=== PATIENT | male | born 1955 | race Hispanic/Latino ===

== ENCOUNTER 2020-06-05 18:08 | Emergency (ER) | payer OTHER ==
[~2020-06-05 18:08] MED LIST: Iopamidol-370 76% 500 ML 1 ML ONE
--- NOTE | 2020-06-05 19:40 | CT ---
CT Abdomen Pelvis W Con: 06/05/2020 6:30 PM CLINICAL INFORMATION: Left lower quadrant abdominal pain COMPARISON: None. TECHNIQUE: Multiple contiguous axial images were obtained and a CT of the abdomen and pelvis with IV contrast. C oronal and sagittal reformats were performed. FINDINGS: Lower Chest: within normal limits. Abdomen: Liver: within normal limits. Bile Ducts: Normal caliber. Gallbladder: No calcified gallstones. Normal caliber wall. Pancreas: within normal limits. Spleen: within normal limits. Adrenals: within normal limits. Kidneys: Mild left hydronephrosis. 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 Pelvis: Reproductive Organs: No pelvic masses. Ureters: 5 mm proximal left ureteral calcification with mild left hydroureter and surrounding strandi ng changes Bladder: within normal limits. Peritoneum: No ascites or free air, no fluid collection. Bowel: Normal caliber. Mesentery and Retroperitoneum: No enlarged mesenteric or retroperitoneal lymph nodes. Vessels: Normal. Abdominal Wall: within normal limits. Bones: Within normal limits IMPRESSION: 1. Left proximal ureteral calcification with mild left hydronephrosis 2. Right renal artery aneurysm
== END 2020-06-05 21:26 | disposition home or self-care (01) ==
LOC: ERS 18:08
DX: N13.2 Hydronephrosis with renal and ureteral calculous obstruction (principal); E11.9 Type 2 diabetes mellitus without complications; E78.5 Hyperlipidemia, unspecified; I10 Essential (primary) hypertension; Z87.891 Personal history of nicotine dependence; Z79.899 Other long term (current) drug therapy
CPT/HCPCS: 74177; Q9967

== ENCOUNTER 2020-08-28 07:13 | Outpatient (CLI) | payer OTHER ==
[2020-08-28 18:25] LABS: Bilirubin Neg (Negative); Blood, Urine Negative (Negative); Clarity Clear (Clear); Glucose, Urine (Dipstick) Normal (Negative); Ketone, Urine Negative (Negative); Leukocyte Negative (Negative); Nitrite Negative (Negative); Protein, Urine (Dipstick) Negative (Neg-Trace); Specific Gravity, Urine 1.015 (1.002-1.036); Urobilinogen Normal mg/dL (Less than 2)
[2020-08-28 18:39] LABS: Hemoglobin 14.4 g/dL (14.0-18.0); Mean Corpuscular HGB CONC 33.6 G/DL (32.0-36.0); Mean Corpuscular Hemoglobin 32.1 PG (27.0-33.0); Mean Corpuscular Volume 95.8 fl (80.0-100.0); Mean Platelet Volume 9.4 fl (7.4-10.4); Platelet Count 268 10x3/uL (130-400); RBC Distribution Width 12.9 % (11.5-14.5); Red Blood Cell (RBC) Count 4.48 10x6/uL (4.40-5.80); White Blood Cell (WBC) Count 7.9 10x3/uL (4.5-11.0)
[2020-08-28 18:46] LABS: Bacteria/HPF Rare-Few HPF (None Seen); RBC/HPF 0-3 HPF (0-3); Squamous Epithelial None Seen HPF (0-3); WBC/HPF 0-3 HPF (0-3)
[2020-08-28 18:47] LABS: Anion Gap 13 mmol/L (10-20); BUN (Urea Nitrogen) 17 mg/dL (8.4-25.7); Calc. Creatinine Clearance 0 mL/min (70-130); Calcium 9.1 mg/dL (7.8-10.44); Carbon Dioxide 24 mmol/L (23-31); Chloride 102 mmol/L (98-107); Estimated GFR-MDRD 90; Glucose 176 mg/dL (80-115); Potassium 4.2 mmol/L (3.5-5.1); Sodium 135 mmol/L (136-145)
[2020-08-28 18:50] LABS: PTT 27.5 sec (22.0-33.0); Prothrombin Time 10.2 sec (9.5-12.1)
[2020-08-29 09:31] LABS: SARS-CoV-2 MS2 Positive; SARS-CoV-2 N Gene Negative; SARS-CoV-2 S Gene Negative; SARS-CoV-2 by NAA Not Detected (NotDetected); SARS-CoV-2 orf1ab Negative
== END 2020-08-28 07:14 | disposition home or self-care (01) ==
LOC: LABBT 07:13
PROVIDERS: ATTEND Urology
DX: Z01.818 Encounter for other preprocedural examination (principal); Z20.828 Contact with and (suspected) exposure to other viral communicable diseases; N20.1 Calculus of ureter
CPT/HCPCS: 80048; 81001; 85027; 85610; 85730; 87086; 87635; 93005; 93010; U0003

== ENCOUNTER 2020-09-02 05:59 | Day surgery (SDC) | payer OTHER ==
[2020-08-30 13:56] VITALS: BMI 29.1
[2020-09-02] MEDS ORDERED: Fentanyl 100 MCG/2 ML VIAL ONE ×2 (06:23→08:49)
[2020-09-02] MEDS ORDERED: Famotidine/PF 20 mg/2ml Vial ONE (06:24)
[2020-09-02] MEDS ORDERED: Midazolam HCl 2 mg/2 ml Vial ONE (07:24)
[2020-09-02] MEDS ORDERED: Iothalamate Meglumine 60% 50 ML VIAL FS ONE (07:45)
--- NOTE | 2020-09-02 09:05 | RAD ---
Retrograde ureterogram intraoperative fluoroscopy HISTORY: Ureteral stone. FINDINGS: Intraoperative fluoroscopy was provided for retrograde study as performed by Dr. La. Sp ot fluoroscopic images show contrast opacification of a nondilated left renal collecting system. Small area of persistent narrowing at the distal left ureter. Dilatation balloon visualized with full balloon profile seen. Final image shows small caliber stent overlying the course of the left ureter.
--- NOTE | 2020-09-02 09:19 | OP ---
DATE OF PROCEDURE: 09/02/2020 PREOPERATIVE DIAGNOSIS: Left distal ureteral stone. POSTOPERATIVE DIAGNOSIS: Left distal ureteral stone. PROCEDURES PERFORMED: Cysto, left rigid ureteroscopy, laser lithotripsy, stone retrieval, stent placements. ANESTHETIC: General. ESTIMATED BLOOD LOSS: Minimal. FINDINGS: There was a 6 mm left lower third ureteral stone that was broken up into three pieces, each of them basketed and removed and sent to Pathology for stone analysis. A 4.8 x 24 cm double-J stent was placed at the end of the case with a string left attached to it. INDICATIONS FOR SURGERY: This is a 65-year-old male, who has been trying to pass a left ureteral stone for the last few weeks, it has moved down, but held up in the lower ureter. He has been minimally symptomatic from it and he is coming in now for a definitive procedure for this. All options have been discussed. DESCRIPTION OF PROCEDURE: After obtaining written and verbal consent from the patient, after documenting normal preoperative blood work, after receiving IV Ancef, he was taken to the operating suite. He was placed in the supine position on the treatment table. PlexiPulses were placed on his lower extremities and turned on. He was given a general anesthetic and oral obturator intubation. He was placed in the dorsal lithotomy position and sterilely prepped and draped. The fluoroscopy unit was brought in. The stone was easily seen. Cystoscopy was performed with a 22-[place] sheath, this was well lubricated, passed under direct vision through the male urethra into the urinary bladder with the aid of a 30-degree lens and a video camera and monitor. The bladder was filled and emptied a number of times and was examined with both the 30 and the 70-degree lens. A 5-[place] Pollack catheter was placed in the left ureteral orifice and contrast was injected through this and showed some mild hydro above the stone, a little narrowing just below the stone. A guidewire was then fed up through the Pollack catheter. The Pollack catheter was removed, and at this point, a small balloon dilator was brought in and under direct vision, placed along the guidewire and up the left ureter. We dilated the intramural ureter with the balloon dilator, then deflated the balloon, removed it, removed the scopes leaving the stent in place. A small caliber graduated rigid ureteroscope was placed with aid of a video camera and monitor through the male urethra into the bladder and up the left ureter adjacent to the guidewire. The stone was easily visualized. A small caliber holmium laser fiber was brought in. The stone was whittled down and broke into three pieces. These were incrementally grabbed and removed with a Nitinol basket. No other stone fragments were seen of any significant size. At this point, the guidewire was backloaded through the cystoscope. A Pollack catheter was placed up in the region of the renal pelvis proximal ureter. Contrast was injected, filling out the entire collecting system. There was no obstruction or extravasation or persistent filling defect noted. The guidewire was removed. Open-ended catheters were removed over the guidewire, and then over the guidewire, the stent was placed and pushed up into place with aid of a pusher, so its proximal end coiled in the renal pelvis and distal end coiled in the bladder when the wire was removed. The string was left attached exiting the urethral meatus. At this point, the patient was awakened, extubated, and taken by stretcher to recovery room. Job ID: [id number]
[2020-09-02] MEDS ORDERED: Metoclopramide HCl 10 MG/2 ML VIAL ONE (10:46)
[2020-09-02] MEDS ORDERED: Lidocaine 1% PF 5 ML VIAL ONE (10:46)
[2020-09-02] MEDS ORDERED: Ondansetron PF 4 MG/2 ML Vial ONE (10:46)
[2020-09-02] MEDS ORDERED: PROPOFOL 200 MG/20 ML VIAL ONE (10:46)
[2020-09-02] MEDS ORDERED: PHENYLEPHRINE-NS 100 MCG/ML 10 ML SYRINGE ONE (10:46)
== END 2020-09-02 10:00 | disposition home or self-care (01) ==
LOC: SDC 05:59
PROVIDERS: ATTEND Urology
PROC: 0TC78ZZ Extirpation of Matter from Left Ureter, Via Natural or Artificial Opening Endoscopic (ICD-10-PCS; principal; 2020-09-02)
PROC: 0T778DZ Dilation of Left Ureter with Intraluminal Device, Via Natural or Artificial Opening Endoscopic (ICD-10-PCS; principal; 2020-09-02)
DX: N20.1 Calculus of ureter (principal); E11.9 Type 2 diabetes mellitus without complications; I10 Essential (primary) hypertension
CPT/HCPCS: 74420; 82365; 88300; J0690; J2250; J2405; J2704; J2765; J3010; S0028